=== PATIENT | male | born 1960 | race Two or more races ===

== ENCOUNTER → 2020-08-14 | Outpatient (CLI) | payer OTHER | END | disposition home or self-care (01) | LOC: PPH VACUNA | PROVIDERS: ATTEND Emergency Medicine Pediatric Emergency Medicine | DX: Z23 Encounter for immunization (principal) ==

== ENCOUNTER 2020-09-04 07:26 | Outpatient (CLI) | payer OTHER | END 2020-09-04 07:33 | disposition home or self-care (01) | LOC: PPH VACUNA 07:26 | PROVIDERS: ATTEND Emergency Medicine Pediatric Emergency Medicine | DX: Z23 Encounter for immunization (principal) ==